=== PATIENT | male | born 1995 | race Caucasian/White ===

== ENCOUNTER 2017-09-27 12:57 | Emergency (ER) | payer BC, OTHER ==
--- NOTE | 2017-09-27 14:35 | UC ---
Neck Pain HPI - HPI Summary HPI Summary: neck pain/stiffness upon awakening. no injury per pt. took ibuprofen with little relief. no c/o headache at this time and no other symptoms present - History of Current Complaint Chief Complaint: UCBackPain Stated Complaint: NECK PAIN Time Seen by Provider: 09/27/17 14:34 Hx Obtained From: Patient Onset/Duration Of Injury/Symptoms: Hours Onset/Duration: Sudden Onset Severity: Moderate Character: Sharp Aggravating Factors: Position, Movement Alleviating Factors: OTC Meds Associated Signs & Symptoms: Positive: Negative - Allergies/Home Medications Allergies/Adverse Reactions: Allergies Allergy/AdvReac Type Severity Reaction Status Date / Time Morphine Allergy Tachycardia Verified 09/27/17 14:11 PMH/Surg Hx/FS Hx/Imm Hx Previously Healthy: Yes - Surgical History Surgical History: Yes Surgery Procedure, Year, and Place: t/A as a kid - Family History Known Family History: Positive: None, Hypertension - Social History Alcohol Use: None Substance Use Type: None Smoking Status (MU): Never Smoked Tobacco - Immunization History Most Recent Influenza Vaccination: no Review Of Systems Constitutional: Positive: Negative Skin: Positive: Negative Eyes: Positive: Negative ENT: Positive: Negative Respiratory: Positive: Negative Cardiovascular: Positive: Negative Gastrointestinal: Positive: Negative Genitourinary: Positive: Negative Musculoskeletal: Positive: Myalgia - neck Neurological: Positive: Negative Psychological: Positive: Negative All Other Systems Reviewed And Are Negative: Yes Physical Exam Triage Information Reviewed: Yes Appearance: Well-Appearing Vital Signs: Initial Vital Signs Temp 98.5 F 09/27/17 14:12 Pulse 75 09/27/17 14:12 Resp 18 09/27/17 14:12 BP 151/61 09/27/17 14:12 Vital Signs Reviewed: Yes Eye Exam: Normal ENT Exam: Normal Neck exam: Other - limited rom to left side couldnt turn very far without pain Respiratory Exam: Normal Cardiovascular Exam: Normal Neurological Exam: Normal Psychological Exam: Normal Skin Exam: Normal Neck Pain Course/Dx - Course Course Of Treatment: xray neck done - results negative. RICE as directed. ibuprofen and flexeril ordered prn - take as directed - discussed common side effects of meds with understanding. f/u pcp 1 week if symtoms not resolving - Differential Dx/Diagnosis Provider Diagnoses: muscle / cervical strain Discharge - Discharge Plan Condition: Good Disposition: HOME Prescriptions: Cyclobenzaprine TAB* [Flexeril 10 MG TAB*] 10 mg PO BID 10 Days #20 tab Ibuprofen TAB* [Motrin TAB* 600 MG] 600 mg PO Q6H PRN 10 Days #40 tab PRN Reason: Pain Patient Education Materials: Cervical Strain (ED) Referrals: No Primary Care Phys,NOPCP [Medical Doctor] - 1 Week
[2017-09-27 14:41] VITALS: BP 151/61
--- NOTE | 2017-09-27 15:25 | RAD ---
HISTORY: Pain, neck tenderness COMPARISONS: None VIEWS: 5, Frontal, lateral, open-mouth odontoid, and bilateral oblique views of the cervical spine. FINDINGS: The cervical spine is visualized from the skull base through T1. ALIGNMENT: There is straightening of the normal cervical lordosis. VERTEBRAL BODIES: The odontoid process is intact. The atlantoaxial intervals are symmetric. JOINTS: There is no subluxation or dislocation. The facet joints are unremarkable. There is no osseous neural foraminal narrowing on the oblique views. INTERVERTEBRAL DISCS: The intervertebral disc heights are normal. SOFT TISSUE: The prevertebral soft tissues are normal. OTHER: The skull base is normal. The lung apices are clear. IMPRESSION: STRAIGHTENING OF THE CERVICAL LORDOSIS
== END 2017-09-27 15:40 | disposition home or self-care (01) ==
LOC: UCCORT 12:57
DX: S13.4XXA Sprain of ligaments of cervical spine, initial encounter (principal); X58.XXXA Exposure to other specified factors, initial encounter; Y92.9 Unspecified place or not applicable
CPT/HCPCS: 72050; 99212; G0463

== ENCOUNTER 2019-12-24 11:39 | Emergency (ER) | payer BC ==
[2019-12-24 12:02] VITALS: BP 137/75
--- NOTE | 2019-12-24 12:11 | UC ---
Throat Pain/Nasal Luke HPI - HPI Summary HPI Summary: 24 y/o male presents to the urgent care c/o moderate sinus congestion w/ green PND and sinus pain and ÁLVAREZ for the past week. Pt reports Hx of sinusitis in the past and when not treated soon he has developed bronchitis. He had low grade fever the first day of symptoms. He has taken OTC medication w/o any improvement. Pt denies cough, sore throat, SOB, chest pain, dizziness, abdominal pain, N/V/D. Denies recent travel in the past month and no contact w/ someone Dx w/ COVID-19 or influenza. - History of Current Complaint Chief Complaint: UCRespiratory Stated Complaint: SINUS COMPLAINT Time Seen by Provider: 12/24/19 12:10 Hx Obtained From: Patient Onset/Duration: Gradual Onset, Lasting Weeks - 1 week, Still Present, Worse Since - 2 days Severity: Moderate Pain Intensity: 4 - sinus pain Pain Scale Used: 0-10 Numeric Cough: None Associated Signs & Symptoms: Positive: Sinus Discomfort, Nasal Discharge - green. Negative: Dysphagia, Wheezing, Hoarseness, Fever, Rash - Epiglottits Risk Factors Epiglottis Risk Factors: Negative - Allergies/Home Medications Allergies/Adverse Reactions: Allergies Allergy/AdvReac Type Severity Reaction Status Date / Time morphine Allergy Unknown Tachycardia Verified 12/24/19 11:59 Home Medications: Home Medications Amoxicillin PO (*) [Amoxicillin 875 MG (*)] 875 mg PO BID #20 tab 12/24/19 [Rx] PMH/Surg Hx/FS Hx/Imm Hx Previously Healthy: Yes - Pt denies PMHX - Surgical History Surgical History: Yes Surgery Procedure, Year, and Place: t/A as a kid - Family History Known Family History: Positive: Hypertension Negative: Cardiac Disease, Diabetes - Social History Occupation: Employed Full-time Lives: With Family Alcohol Use: Rare Substance Use Type: None Smoking Status (MU): Never Smoked Tobacco - Immunization History Most Recent Influenza Vaccination: no Vaccination Up to Date: Yes Review of Systems All Other Systems Reviewed And Are Negative: Yes Constitutional: Positive: Negative Skin: Positive: Negative Eyes: Positive: Negative ENT: Positive: Sore Throat - mild, Nasal Discharge - green, Sinus Congestion, Sinus Pain/Tenderness, Other - green PND Respiratory: Positive: Negative Cardiovascular: Positive: Negative Gastrointestinal: Positive: Negative Genitourinary: Positive: Negative Motor: Positive: Negative Neurovascular: Positive: Negative Musculoskeletal: Positive: Negative Neurological/Mental Status: Positive: Headache Psychological: Positive: Negative Is Patient Immunocompromised?: No Physical Exam - Summary Physical Exam Summary: Vitals: reviewed General: Well developed, well-nourished male patient with NAD. Head and face: Normocephalic and atraumatic, Positive tenderness over the frontal and maxillary sinuses.. Eyes: PERRLA, EOMI x 2. Normal conjunctiva. No eye discharge. ENT: Ears and TM with normal limits. Nose: edematous and erythematous nasal mucosa with yellowish discharge and erythematous mucosa. Pharynx with erythema, no exudate. green PND Neck: Supple, no JVD, no carotid bruits and no lymphadenopathy. Lungs: clear, no rales, no rhonchi, no wheezes. CVS: RRR, S1 and S2 present no murmurs or gallops appreciated. Abdomen: soft nontender with positive bowel sounds. Extremities: no edema noted. Neuro: WNL. Skin: warm and dry Triage Information Reviewed: Yes Vital Signs: Initial Vital Signs Temp 98.2 F 12/24/19 12:00 Pulse 71 12/24/19 12:00 Resp 16 12/24/19 12:00 BP 137/75 12/24/19 12:00 Pulse Ox 100 12/24/19 12:00 Throat Pain/Nasal Course/Dx - Course Course Of Treatment: 24 y/o male presents to the urgent care c/o moderate sinus congestion w/ green PND and sinus pain and ÁLVAREZ for the past week. Pt reports Hx of sinusitis in the past and when not treated soon he has developed bronchitis. He had low grade fever the first day of symptoms. He has taken OTC medication w/o any improvement. Pt denies cough, sore throat, SOB, chest pain, dizziness, abdominal pain, N/V/D. Denies recent travel in the past month and no contact w/ someone Dx w/ COVID-19 or influenza. Pt is hemodynamically stable, A&Ox3, VS: WNL. Pt w/ bacterial sinusitis. Pt with 1 weeks of symptoms getting worse. Pt Rx Amoxicillin PO and flonase nasal spray. Discharge instructions explained to Pt. Advised to Return to the clinic or PCP in 3 days if symptoms do not improve.Pt understood and agreed with plan of care. - Differential Dx/Diagnosis Differential Diagnosis/HQI/PQRI: Influenza, Laryngitis, Pharyngitis, Sinusitis, URI Provider Diagnosis: Acute bacterial sinusitis Discharge ED - Sign-Out/Discharge Documenting (check all that apply): Patient Departure - D/C home All imaging exams completed and their final reports reviewed: No Studies - Discharge Plan Condition: Stable Disposition: HOME Prescriptions: Amoxicillin PO (*) [Amoxicillin 875 MG (*)] 875 mg PO BID #20 tab Patient Education Materials: Sinusitis (ED) Referrals: SABRINA Narvaez [Primary Care Provider] - 3 Days Additional Instructions: 1- Please increase fluid intake and rest. take full course of antibiotics to avoid resistance. Take yogurts w/ probiotics or Culturelle to protect your GI system 2-Use Flonase as directed to help drain fluid. Also buy saline drops to clear sinuses 3-Take Ibuprofen PO q6-8hr prn for sinus pain and ÁLVAREZ. 4-Please f/u w/ your PCP in 3 days if symptoms do not improve for further management and treatment - Billing Disposition and Condition Condition: STABLE Disposition: Home
== END 2019-12-24 12:45 | disposition home or self-care (01) ==
LOC: UCCORT 11:39
DX: J01.90 Acute sinusitis, unspecified (principal); B96.89 Other specified bacterial agents as the cause of diseases classified elsewhere; Z88.5 Allergy status to narcotic agent
CPT/HCPCS: 99212; G0463